=== PATIENT | female | born 1980 | race Caucasian/White ===

== ENCOUNTER 2020-07-05 19:01 | Emergency (ER) | payer MEDICAID, OTHER ==
[~2020-07-05] VITALS: Ht 154.9 cm; Wt 72.6 kg
[2020-07-05 19:03] VITALS: BP 144/100
--- NOTE | 2020-07-05 19:09 | NUR ---
PT AMB TO BED 4.
[2020-07-05] MEDS ORDERED: LIDOCAINE VISCOUS 2% 20 ML UDC PO ONE (19:20)
[2020-07-05] MEDS ORDERED: DICYCLOMINE HCL LIQUID 10 MG/5 ML UDC PO ONE (19:20)
[2020-07-05] MEDS ORDERED: KETOROLAC 30 MG/ML VIAL IM ONE (19:20)
[2020-07-05] MEDS ORDERED: ALUMINUM HYD/MAG/SIMETHICONE 30 ML UDC PO ONE (19:20)
--- NOTE | 2020-07-05 19:20 | NUR ---
PT BIB SELF C/O EPIGASTRIC PAIN AT 8/10 THAT RADIATES TO ENTIRE ABD X2 HOURS S/P EATING FISH ACOMPANIED WITH NAUSEA AND 1 EPISODE OF NON-BLOODY EMESIS. ABD IS SOFT, NON TENDER, BOWEL SOUNDS ACTVIE X4 QUADRANTS. - DIARRHEA, - CONSTIPATION, - FEVER, - DYSURIA.
--- NOTE | 2020-07-05 19:40 | NUR ---
PT AMBULATED TO RESTROOM WITH STEADY GAIT TO GIVE URINE SAMPLE
[2020-07-05 20:19] VITALS: BP 129/65
--- NOTE | 2020-07-05 20:19 | NUR ---
Patient discharged with v/s stable. Written and verbal after care instructions given and explained. Patient alert, oriented and verbalized understanding of instructions. Ambulatory with steady gait. All questions addressed prior to discharge. ID band removed. Patient advised to follow up with PMD. Rx of zofran and omeprazole given. Patient educated on indication of medication including possible reaction and side effects. Opportunity to ask questions provided and answered.
== END 2020-07-05 20:19 | disposition home or self-care (01) ==
LOC: MED 19:01
DX: R10.9 Unspecified abdominal pain (principal)
CPT/HCPCS: 81002; 81025; 96372; 99284; J1885

== ENCOUNTER 2021-04-26 00:30 | Emergency (ER) | payer OTHER ==
[~2021-04-26] VITALS: Ht 157.5 cm; Wt 74.8 kg
[2021-04-26 00:40] VITALS: BP 120/76
--- NOTE | 2021-04-26 00:43 | NUR ---
to lobby a/w bed ambulatory
--- NOTE | 2021-04-26 01:00 | NUR ---
pt ambulated to bed 03
--- NOTE | 2021-04-26 01:04 | NUR ---
40/f c/o rt ear pain 07/11, for a month. pt reports noticing leakage. denies pmh nkda
--- NOTE | 2021-04-26 01:41 | NUR ---
DR. MARTÍNEZ AT BEDSIDE EXAMINING PATIENT.
[2021-04-26] MEDS ORDERED: LORazepam 1 MG TAB PO ONE (01:45)
[2021-04-26] MEDS ORDERED: KETOROLAC 30 MG/ML VIAL IM ONE (01:45)
[2021-04-26] MEDS ORDERED: KETOROLAC 60 MG/2 ML VIAL IM ONE (01:50)
[2021-04-26] MEDS ORDERED: CIPR7.5S OT (04:24)
[2021-04-26] MEDS ORDERED: IBUP-2218 PO (04:24)
[2021-04-26 04:44] VITALS: BP 95/51
--- NOTE | 2021-04-26 04:44 | NUR ---
Patient discharged with v/s stable. Written and verbal after care instructions given and explained. Patient alert, oriented and verbalized understanding of instructions. Ambulatory with steady gait. All questions addressed prior to discharge. ID band removed. Patient advised to follow up with PMD. Rx of Ciprodex Otic Suspension and Ibuprofen given. Patient educated on indication of medication including possible reaction and side effects. Opportunity to ask questions provided and answered.
== END 2021-04-26 04:44 | disposition home or self-care (01) ==
LOC: MED 00:30
DX: H60.91 Unspecified otitis externa, right ear (principal); Z98.890 Other specified postprocedural states
CPT/HCPCS: 70450; 96372; 99284; J1885

== ENCOUNTER 2022-11-07 02:47 | Emergency (ER) | payer OTHER ==
[~2022-11-07] VITALS: Ht 154.9 cm; Wt 70.3 kg
[~2022-11-07 02:47] MED LIST: CIPR7.5S OT; IBUP-2218 PO
[2022-11-07 03:35] VITALS: BP 123/90
--- NOTE | 2022-11-07 03:38 | NUR ---
TO LOBBY A/W BED AMBULATORY
--- NOTE | 2022-11-07 05:12 | NUR ---
Called no show in lobby or outside.
--- NOTE | 2022-11-07 05:30 | NUR ---
PATIENT LEFT WITHOUT BEING SEEN BY DR. Meeks. NO FURTHER CARE PROVIDED FOR PATIENT.
== END 2022-11-07 05:12 | disposition left against medical advice (07) ==
LOC: MED 02:47
DX: R51.9 Headache, unspecified (principal); Z53.21 Procedure and treatment not carried out due to patient leaving prior to being seen by health care provider

== ENCOUNTER 2022-12-07 19:13 | Emergency (ER) | payer OTHER ==
[~2022-12-07] VITALS: Ht 154.9 cm; Wt 70.3 kg
[2022-12-07 19:25] VITALS: BP 128/73
[2022-12-07 20:21] LABS: BASOPHILS % (AUTO) 0.3 % (0.0-2.0); EOSINOPHILS % (AUTO) 0.1 % (0.0-4.0); HEMATOCRIT 40.2 % (36-48); LYMPHOCYTES # (AUTO) 1.6 K/uL (2.5-16.5); LYMPHOCYTES % (AUTO) 9.9 % (20.5-51.1); MEAN CORPUSCULAR HEMOGLOBIN 26 pg (27-31); MEAN CORPUSCULAR HGB CONC 32 g/dL (33-37); MEAN CORPUSCULAR VOLUME 81.2 fL (80-94); MONOCYTES # (AUTO) 1.4 K/uL (0.8-1.0); MONOCYTES % (AUTO) 8.8 % (1.7-9.3); NEUTROPHILS # (AUTO) 13.3 K/uL (1.8-7.7); NEUTROPHILS % (AUTO) 80.9 % (42.2-75.2); PLATELET COUNT (AUTO) 283 K/uL (140-450); RED BLOOD CELL COUNT(AUTO) 4.95 MIL/uL (4.20-5.40); RED CELL DISTRIBUTION WIDTH 14.3 % (11.6-13.7); WHITE BLOOD COUNT (AUTO) 16.4 K/uL (4.8-10.8)
[2022-12-07] MEDS ORDERED: DICYCLOMINE HCL LIQUID 10 MG/5 ML UDC PO ONE (20:40)
[2022-12-07] MEDS ORDERED: FAMOTIDINE 20 MG TAB PO ONE (20:40)
[2022-12-07] MEDS ORDERED: IBUPROFEN 600 MG TAB PO ONE (20:40)
[2022-12-07] MEDS ORDERED: ALUMINUM HYD/MAG/SIMETHICONE 30 ML UDC PO ONE (20:40)
[2022-12-07 20:47] LABS: ALBUMIN 3.7 g/dL (3.4-5.0); ANION GAP 11.6 (8-16); CARBON DIOXIDE 27.8 mmol/L (21-32); CREATININE 0.8 mg/dL (0.6-1.3); POTASSIUM 3.4 mmol/L (3.5-5.1); TOTAL BILIRUBIN 0.4 mg/dL (0.0-1.0)
--- NOTE | 2022-12-07 21:04 | NUR ---
pt to bed #3
[2022-12-07 21:36] LABS: APPEARANCE,URINE CLEAR (CLEAR); BILIRUBIN,URINE NEGATIVE (NEGATIVE); BLOOD, URINE TRACE-I (NEGATIVE); COLOR,URINE YELLOW (YELLOW); LEUKOCYTE ESTERASE ,URINE NEGATIVE (NEGATIVE); NITRITE, URINE NEGATIVE (NEGATIVE); UGLUCOSE NEGATIVE (NEGATIVE)
[2022-12-07 21:47] LABS: RBC,URINE 0-5 /HPF (0-5); WBC,URINE 0-5 /HPF (0-5)
[2022-12-07] MEDS ORDERED: FAMOTIDINE 20 MG TAB ONE (21:51)
[2022-12-07] MEDS ORDERED: IBUPROFEN 600 MG TAB ONE (21:52)
[2022-12-07] MEDS ORDERED: ALUMINUM HYD/MAG/SIMETHICONE 30 ML UDC ONE (21:52)
[2022-12-07] MEDS ORDERED: DICYCLOMINE HCL LIQUID 10 MG/5 ML UDC ONE (21:53)
--- NOTE | 2022-12-07 22:12 | NUR ---
Jan taken to CT scan via WC
--- NOTE | 2022-12-07 23:36 | NUR ---
COVID-19 and flu swabs collected and sent to lab.
--- NOTE | 2022-12-08 00:16 | NUR ---
Dr. Li explained results and treatment plans.
[2022-12-08] MEDS ORDERED: KETOROLAC 30 MG/ML VIAL IM ONE (00:25)
[2022-12-08] MEDS ORDERED: ONDA-188 SL (00:26)
[2022-12-08] MEDS ORDERED: ACET-10509 PO (00:26)
[2022-12-08] MEDS ORDERED: BEN10 PO (00:26)
[2022-12-08 00:46] VITALS: BP 104/58
--- NOTE | 2022-12-08 00:46 | NUR ---
Patient discharged with v/s stable. Written and verbal after care instructions given and explained. Patient alert, oriented and verbalized understanding of instructions. Ambulatory with steady gait. All questions addressed prior to discharge. ID band removed. Patient advised to follow up with PMD. Rx of Zofran, Tylenol and Bentyl given. Patient educated on indication of medication including possible reaction and side effects. Opportunity to ask questions provided and answered.
== END 2022-12-08 00:46 | disposition home or self-care (01) ==
LOC: MED 19:13
DX: R11.2 Nausea with vomiting, unspecified (principal); R19.7 Diarrhea, unspecified; Z20.822 Contact with and (suspected) exposure to COVID-19; Z79.1 Long term (current) use of non-steroidal anti-inflammatories (NSAID); Z79.2 Long term (current) use of antibiotics
CPT/HCPCS: 36415; 74176; 80053; 81001; 81025; 83690; 85025; 87426; 87804; 96372; 99285; J1885

== ENCOUNTER 2023-06-10 00:14 | Emergency (ER) | payer OTHER ==
[~2023-06-10] VITALS: Ht 157.5 cm; Wt 74.8 kg
[~2023-06-10 00:14] MED LIST changes: +ACET-10509 PO; +BEN10 PO; +ONDA-188 SL
[2023-06-10 00:18] VITALS: BP 135/83; PULSE 74; RESP 18; TEMP 97.4; O2SAT 100
[2023-06-10 01:30] VITALS: BP 135/83; PULSE 74; RESP 18; TEMP 97.4; O2SAT 100
== END 2023-06-10 01:30 | disposition left against medical advice (07) ==
LOC: MED 00:14
DX: H92.02 Otalgia, left ear (principal); Z53.21 Procedure and treatment not carried out due to patient leaving prior to being seen by health care provider
CPT/HCPCS: 99281